=== PATIENT | male | born 1970 | race Asian ===

== ENCOUNTER 2016-08-14 16:53 | Emergency (ER) | payer OTHER ==
[~2016-08-14] VITALS: Ht 182.9 cm; Wt 77.1 kg
[2016-08-14 17:15] VITALS: BP 113/74; TEMP 98.5
== END 2016-08-14 17:30 | disposition home or self-care (01) ==
LOC: ED 16:53
DX: R10.9 Unspecified abdominal pain (principal)

== ENCOUNTER 2016-08-15 05:58 | Emergency (ER) | payer OTHER ==
[~2016-08-15] VITALS: Ht 152.4 cm; Wt 81.6 kg
[2016-08-15 06:08] VITALS: TEMP 97.7
[2016-08-15 06:59] LABS: POTASSIUM 3.5 mmol/L (3.6-5.2)
[2016-08-15 07:05] LABS: PLATELET COUNT 207 K/uL (142-355)
[2016-08-15 08:00] VITALS: BP 144/100
== END 2016-08-15 08:00 | disposition home or self-care (01) ==
LOC: ED 05:58
PROVIDERS: Emergency Medicine
DX: R10.9 Unspecified abdominal pain (principal); S39.011A Strain of muscle, fascia and tendon of abdomen, initial encounter
CPT/HCPCS: 80053; 81000; 82150; 83690; 85027; 96372; 99283

== ENCOUNTER 2016-09-11 08:45 | Emergency (ER) | payer OTHER ==
[~2016-09-11] VITALS: Ht 182.9 cm; Wt 81.6 kg
[2016-09-11 08:50] VITALS: BP 156/105; TEMP 98.4
[2016-09-11] MEDS ORDERED: PROZAC10 MG PO (08:56)
[2016-09-11] MEDS ORDERED: LISI20TA11 PO (08:56)
[2016-09-11] MEDS ORDERED: SEROQUEL100 MG OR (08:56)
== END 2016-09-11 12:59 | disposition home or self-care (01) ==
LOC: ED 08:45
DX: S60.222A Contusion of left hand, initial encounter (principal); M79.652 Pain in left thigh; Y04.0XXA Assault by unarmed brawl or fight, initial encounter; Y92.512 Supermarket, store or market as the place of occurrence of the external cause
CPT/HCPCS: 99283

== ENCOUNTER 2016-10-01 04:28 | Emergency (ER) | payer OTHER ==
[~2016-10-01] VITALS: Ht 182.9 cm; Wt 80.3 kg
[~2016-10-01 04:28] MED LIST: LISI20TA11 PO; PROZAC10 MG PO; SEROQUEL100 MG OR
[2016-10-01 05:08] LABS: PLATELET COUNT 236 K/uL (142-355)
[2016-10-01 05:16] LABS: POTASSIUM 3.5 mmol/L (3.6-5.2); SODIUM 137 mmol/L (136-145)
[2016-10-01 05:55] VITALS: BP 128/90; TEMP 98.6
== END 2016-10-01 05:55 | disposition home or self-care (01) ==
LOC: ED 04:28
DX: J06.9 Acute upper respiratory infection, unspecified (principal); I10 Essential (primary) hypertension
CPT/HCPCS: 36415; 80053; 81000; 85027; 99283

== ENCOUNTER 2016-12-24 10:28 | Emergency (ER) | payer OTHER ==
[~2016-12-24] VITALS: Ht 182.9 cm; Wt 81.6 kg
[2016-12-24 10:38] VITALS: BP 138/88; TEMP 98.2
== END 2016-12-24 11:08 | disposition home or self-care (01) ==
LOC: ED 10:28
DX: J40 Bronchitis, not specified as acute or chronic (principal)
CPT/HCPCS: 99281

== ENCOUNTER 2016-12-31 10:16 | Outpatient (CLI) | payer OTHER | END 2016-12-31 10:20 | disposition short-term general hospital (02) | LOC: AMB 10:16 | DX: R53.81 Other malaise (principal); R52 Pain, unspecified | CPT/HCPCS: A0425; A0427 ==

== ENCOUNTER 2016-12-31 10:23 | Emergency (ER) | payer OTHER ==
[~2016-12-31] VITALS: Ht 182.9 cm; Wt 79.4 kg
[2016-12-31 10:48] LABS: POTASSIUM 3.3 mmol/L (3.6-5.2); SODIUM 134 mmol/L (136-145)
[2016-12-31 10:50] LABS: PLATELET COUNT 221 K/uL (142-355)
[2016-12-31 11:50] VITALS: BP 154/97; TEMP 98.9
== END 2016-12-31 12:26 | disposition home or self-care (01) ==
LOC: ED 10:23
DX: F14.10 Cocaine abuse, uncomplicated (principal); D72.829 Elevated white blood cell count, unspecified
CPT/HCPCS: 36415; 80053; 80307; 81000; 82550; 82553; 85027; 99283; G0479

== ENCOUNTER 2017-01-26 07:46 | Emergency (ER) | payer OTHER ==
[~2017-01-26] VITALS: Ht 182.9 cm; Wt 79.2 kg
[2017-01-26 09:06] VITALS: TEMP 98.3
[2017-01-26 09:55] LABS: PLATELET COUNT 193 K/uL (142-355)
[2017-01-26 10:07] LABS: POTASSIUM 3.4 mmol/L (3.6-5.2)
[2017-01-26 10:11] LABS: PARTIAL THROMBOPLASTIN TIME 32.1 SECONDS (24.5-33.6)
[2017-01-26 11:39] VITALS: BP 132/80
== END 2017-01-26 11:39 | disposition home or self-care (01) ==
LOC: ED 07:46
DX: S80.02XA Contusion of left knee, initial encounter (principal)
CPT/HCPCS: 80053; 85027; 85610; 85730; 99283

== ENCOUNTER 2017-03-13 08:52 | Emergency (ER) | payer OTHER ==
[~2017-03-13] VITALS: Ht 182.9 cm; Wt 81.6 kg
[2017-03-13 08:59] VITALS: BP 134/95; TEMP 98.3
== END 2017-03-13 10:30 | disposition home or self-care (01) ==
LOC: ED 08:52
DX: S52.002A Unspecified fracture of upper end of left ulna, initial encounter for closed fracture (principal); W19.XXXA Unspecified fall, initial encounter
CPT/HCPCS: 96372; 99283; J1885

== ENCOUNTER 2017-10-09 18:28 | Emergency (ER) | payer OTHER ==
[~2017-10-09] VITALS: Ht 182.9 cm; Wt 86.2 kg
[2017-10-09 19:25] LABS: PLATELET COUNT 185 K/uL (142-355)
[2017-10-09 20:48] VITALS: BP 126/91; TEMP 98.6
== END 2017-10-09 20:45 | disposition home or self-care (01) ==
LOC: ED 18:28
DX: L02.416 Cutaneous abscess of left lower limb (principal)
CPT/HCPCS: 36415; 85027; 99283

== ENCOUNTER 2017-11-18 18:06 | Emergency (ER) | payer OTHER ==
[~2017-11-18] VITALS: Ht 182.9 cm; Wt 79.1 kg
[2017-11-18 18:08] VITALS: TEMP 97.5
[2017-11-18 18:43] VITALS: BP 145/84
== END 2017-11-18 18:44 | disposition home or self-care (01) ==
LOC: ED 18:06
DX: L02.416 Cutaneous abscess of left lower limb (principal)
CPT/HCPCS: 99282

== ENCOUNTER 2018-01-04 13:27 | Emergency (ER) | payer OTHER ==
[~2018-01-04] VITALS: Ht 182.9 cm; Wt 83.9 kg
[2018-01-04 13:30] VITALS: TEMP 97
[2018-01-04 15:48] VITALS: BP 142/98
== END 2018-01-04 15:48 | disposition home or self-care (01) ==
LOC: ED 13:27
DX: S70.01XA Contusion of right hip, initial encounter (principal); S00.93XA Contusion of unspecified part of head, initial encounter; W17.89XA Other fall from one level to another, initial encounter
CPT/HCPCS: 99283

== ENCOUNTER 2018-01-24 15:37 | Emergency (ER) | payer OTHER ==
[~2018-01-24] VITALS: Ht 182.9 cm; Wt 81.2 kg
[2018-01-24 16:24] VITALS: BP 140/81; TEMP 97.9
== END 2018-01-24 16:31 | disposition home or self-care (01) ==
LOC: ED 15:37
DX: S51.832A Puncture wound without foreign body of left forearm, initial encounter (principal); X58.XXXA Exposure to other specified factors, initial encounter; Y92.89 Other specified places as the place of occurrence of the external cause; Y99.8 Other external cause status; L03.114 Cellulitis of left upper limb
CPT/HCPCS: 90715; 96372; 99283; J0696

== ENCOUNTER 2018-01-27 18:21 | Emergency (ER) | payer OTHER ==
[~2018-01-27] VITALS: Ht 182.9 cm; Wt 82.6 kg
[2018-01-27 18:29] VITALS: TEMP 98.8
[2018-01-27] MEDS ORDERED: LISI20TA11 PO (18:42)
[2018-01-27 19:36] VITALS: BP 152/90
== END 2018-01-27 19:36 | disposition home or self-care (01) ==
LOC: ED 18:21
DX: S90.02XA Contusion of left ankle, initial encounter (principal); W20.8XXA Other cause of strike by thrown, projected or falling object, initial encounter; Y92.89 Other specified places as the place of occurrence of the external cause; S90.32XA Contusion of left foot, initial encounter
CPT/HCPCS: 99283

== ENCOUNTER 2018-02-11 08:36 | Emergency (ER) | payer OTHER ==
[~2018-02-11] VITALS: Ht 182.9 cm; Wt 80.7 kg
[2018-02-11 08:38] VITALS: BP 130/91; TEMP 97.3
== END 2018-02-11 10:10 | disposition home or self-care (01) ==
LOC: ED 08:36
DX: J06.9 Acute upper respiratory infection, unspecified (principal)
CPT/HCPCS: 87081; 87804; 87880; 99283

== ENCOUNTER 2018-03-25 03:11 | Emergency (ER) | payer OTHER ==
[~2018-03-25] VITALS: Ht 182.9 cm; Wt 80.7 kg
[2018-03-25] MEDS ORDERED: LISINOP/HCTZ1 TA2 PO (03:25)
[2018-03-25 03:49] LABS: PLATELET COUNT 225 K/uL (142-355)
[2018-03-25 04:03] LABS: POTASSIUM 3.7 mmol/L (3.6-5.2); SODIUM 137 mmol/L (136-145)
[2018-03-25 04:27] VITALS: BP 133/84; TEMP 97.5
== END 2018-03-25 04:29 | disposition home or self-care (01) ==
LOC: ED 03:11
PROVIDERS: Internal Medicine
DX: R10.13 Epigastric pain (principal); R07.89 Other chest pain; R73.9 Hyperglycemia, unspecified; I10 Essential (primary) hypertension; I44.4 Left anterior fascicular block
CPT/HCPCS: 36415; 80053; 82550; 84484; 85027; 93005; 99283

== ENCOUNTER 2018-12-27 12:49 | Emergency (ER) | payer OTHER ==
[~2018-12-27] VITALS: Ht 182.9 cm; Wt 80.7 kg
[~2018-12-27 12:49] MED LIST changes: +LISINOP/HCTZ1 TA2 PO
[2018-12-27 14:37] VITALS: BP 130/88; TEMP 98.2
== END 2018-12-27 14:45 | disposition home or self-care (01) ==
LOC: ED 12:49
DX: S60.221A Contusion of right hand, initial encounter (principal); Y33.XXXA Other specified events, undetermined intent, initial encounter; Y93.9 Activity, unspecified; Y92.9 Unspecified place or not applicable
CPT/HCPCS: 99283

== ENCOUNTER 2020-03-10 20:01 | Emergency (ER) | payer OTHER ==
[~2020-03-10] VITALS: Ht 182.9 cm; Wt 90.7 kg
[2020-03-10 20:20] VITALS: BP 163/108; TEMP 99.1
== END 2020-03-10 20:40 | disposition home or self-care (01) ==
LOC: ED 20:01
DX: S50.11XA Contusion of right forearm, initial encounter (principal); S60.211A Contusion of right wrist, initial encounter; W20.8XXA Other cause of strike by thrown, projected or falling object, initial encounter; Y92.89 Other specified places as the place of occurrence of the external cause
CPT/HCPCS: 99282